=== PATIENT | female | born 1970 | race African-American/Black ===

== ENCOUNTER 2019-08-22 01:22 | Emergency (ER) | payer BC, MEDICAID ==
[~2019-08-22] VITALS: Ht 154.9 cm; Wt 71.8 kg
[2019-08-22 02:00] VITALS: BP 138/78
[2019-08-22] MEDS ORDERED: CLINDAMYCIN HCL 150 MG CAPSULE PO ONE (02:30)
[2019-08-22] MEDS ORDERED: IBUPROFEN 600 MG TABLET PO ONE (02:30)
== END 2019-08-22 02:50 | disposition home or self-care (01) ==
LOC: EMS 01:22
DX: K04.7 Periapical abscess without sinus (principal); R03.0 Elevated blood-pressure reading, without diagnosis of hypertension; F17.210 Nicotine dependence, cigarettes, uncomplicated; Z90.710 Acquired absence of both cervix and uterus; Z88.6 Allergy status to analgesic agent; Z88.5 Allergy status to narcotic agent

== ENCOUNTER 2019-08-24 12:23 | Emergency (ER) | payer BC ==
[~2019-08-24] VITALS: Ht 162.6 cm; Wt 71.8 kg
[2019-08-24] MEDS ORDERED: CLIN150C9 PO (12:34)
[2019-08-24] MEDS ORDERED: IBUP-2070 PO (12:34)
[2019-08-24] MEDS ORDERED: AMPICILLIN SODIUM/SULBACTAM NA 3 GM in SODIUM CHLORIDE 0.9% 100 ML IV ONE (13:30)
[2019-08-24] MEDS ORDERED: 0.9% SODIUM CHLORIDE 10 ML SYRINGE IVP PRN (13:30)
[2019-08-24] MEDS ORDERED: MORPHINE SULFATE 4 MG/ML SYRINGE IVP ONE (13:30)
[2019-08-24] MEDS ORDERED: IOVERSOL 320 MG/ML 100 ML VIAL ONE (13:34)
[2019-08-24] MEDS ORDERED: SODIUM CHLORIDE 0.9% 100 ML ONE (13:34)
[2019-08-24 14:06] LABS: BASOPHILS % (AUTO) 0.2 % (0.0-2.0); EOSINOPHILS % (AUTO) 0.9 % (1.0-6.0); HEMATOCRIT 35.8 % (36-46); LYMPHOCYTES # (AUTO) 1.1 K/uL (1.0-4.8); LYMPHOCYTES % (AUTO) 12.6 % (22.0-44.0); MEAN CORPUSCULAR HEMOGLOBIN 29.5 pg (26.0-34.0); MEAN CORPUSCULAR HGB CONC 33.3 G/dL (31.0-37.0); MEAN CORPUSCULAR VOLUME 88 fL (80-100); MONOCYTES % (AUTO) 11.3 % (2.0-9.0); NEUTROPHILS # (AUTO) 6.3 K/uL (1.8-7.7); PLATELET COUNT (AUTO) 130 K/uL (150-450); RED BLOOD CELL COUNT(AUTO) 4.05 MIL/uL (4.00-5.20); RED CELL DISTRIBUTION WIDTH 13.2 % (11.5-14.5)
[2019-08-24 14:17] LABS: ANION GAP 13 mmol/L (8-16); CALCIUM, TOTAL 8.9 mg/dL (8.8-10.5); CARBON DIOXIDE 23 mmol/L (22-29); CHLORIDE 104 mmol/L (98-107); CREATININE 1.06 mg/dL (0.60-1.30); GLOMERULAR FILTR. RATE CALC > 60 mL/min (>60); GLUCOSE,RANDOM 75 mg/dL (70-110); POTASSIUM 3.5 mmol/L (3.5-5.1); SODIUM SERUM 140 mmol/L (136-145); UREA NITROGEN, BLOOD 8 mg/dL (7-18)
[2019-08-24 14:31] LABS: ALANINE AMINOTRANSFERASE 19 U/L (12-78); ALBUMIN 2.8 g/dL (3.4-5.0); ALKALINE PHOSPHATASE 74 U/L (46-116); ASPARTATE AMINOTRANSFERASE 22 U/L (15-37); BILIRUBIN,TOTAL 0.5 mg/dL (0.1-1.0); HCG,QUANTITATIVE 7 mIU/mL (0-6); TOTAL PROTEIN, SERUM 6.9 g/dL (6.4-8.2)
[2019-08-24 14:56] LABS: LACTIC ACID 0.7 mmol/L (0.4-2.0)
[2019-08-24] MEDS ORDERED: DEXAMETHASONE SOD PHOS 4 MG/ML 5 ML VIAL IVP ONE (17:30)
[2019-08-24 18:03] VITALS: BP 126/72
== END 2019-08-24 18:55 | disposition short-term general hospital (02) ==
LOC: EMS 12:32
DX: K04.7 Periapical abscess without sinus (principal); K12.2 Cellulitis and abscess of mouth; F17.210 Nicotine dependence, cigarettes, uncomplicated; Z90.710 Acquired absence of both cervix and uterus; Z88.6 Allergy status to analgesic agent; Z88.5 Allergy status to narcotic agent
CPT/HCPCS: 36415; 70487; 80053; 83605; 84702; 85025; 87040; 96365; 96375; 99285; J0295; J1100; J2270; J7050; Q9967